=== PATIENT | female | born 1960 | race Caucasian/White ===

== ENCOUNTER 2019-08-29 10:29 | Outpatient (CLI) | payer OTHER ==
--- NOTE | 2019-08-29 13:39 | CT ---
CT CERVICAL SPINE WITHOUT CONTRAST: 08/29/19 INDICATION: Cervical radiculopathy. FINDINGS: Multilevel operative changes are noted. Anterior plate and screws transfix C4-5 with an interbody imp lant and interbody fusion. Interbody implant with interbody fusion at C5-6 and C6-7. Anterior plate and screws transfix C7-T1 with interbody implant and interbody fusion. The C2-3 disc s pace is relatively well preserved. There is narrowing and degenerative changes at the C3-4 disc space . Findings at each level described: C2-3: Minimal spondylosis. No cord impingement of central canal stenosis. Foramina are patent. C3-4: Posterior spondylosis effaces the anterior subarachnoid space and abuts the anterior cord. Bila teral foraminal stenosis secondary to facet and uncinate hypertrophy. C4-5: Interbody fusion. Mild posterior spondylosis effaces the anterior subarachnoid space. No signif icant central canal or foraminal stenosis. C5-6: Interbody fusion. Mild spondylosis. No central canal or foraminal stenosis. C6-7: Interbody fusion. Mild posterior spondylosis effaces the anterior subarachnoid space. No eviden ce of central canal or foraminal stenosis. C7-T1: Interbody fusion. No central canal or foraminal stenosis apparent. Posterior pedicle screws are seen at C6-C7 and these appear adequately positioned. IMPRESSION: 1. Degenerative changes at C3-4 with bilateral foraminal stenosis as described above. 2. Multilevel fusion from C4 through T1 as detailed above. POS: [facility]
== END 2019-08-29 10:30 | disposition home or self-care (01) ==
LOC: BICCT 10:29
PROVIDERS: ATTEND Anesthesiology
DX: M47.812 Spondylosis without myelopathy or radiculopathy, cervical region (principal); M48.02 Spinal stenosis, cervical region; Z98.1 Arthrodesis status
CPT/HCPCS: 72125

== ENCOUNTER 2020-09-19 09:10 | Outpatient (CLI) | payer BC ==
[2020-09-19] MEDS ORDERED: Iopamidol-370 76% 500 ML 1 ML ONE (09:56)
== END 2020-09-19 09:11 | disposition home or self-care (01) ==
LOC: BICCT 09:10
PROVIDERS: ATTEND Physician Assistant Medical
DX: E88.89 Other specified metabolic disorders (principal); N28.1 Cyst of kidney, acquired; N28.89 Other specified disorders of kidney and ureter
CPT/HCPCS: 74177

== ENCOUNTER 2021-02-08 02:23 | Inpatient (IN) | payer BC, SELFPAY ==
[2021-02-08 05:01] VITALS: BMI 26.6
[2021-02-08] MEDS ORDERED: Nitroglycerin 0.4 MG TAB (25 Tab Bottle) ONE (07:30)
[2021-02-08] MEDS ORDERED: Nitroglycerin 0.4 MG TAB (25 Tab Bottle) SL PRN ×2 (07:47→13:42)
[2021-02-08] MEDS ORDERED: Aspirin Chewable 81 MG TAB PO SCH (08:00)
[2021-02-08] MEDS ORDERED: FLU VACC QS2021-22(6MOS UP)/PF 60 MCG/0.5 ML SYRINGE IM ONE (09:00)
[2021-02-08] MEDS ORDERED: Morphine 4 MG/ML VIAL SLOW IVP PRN (09:06)
[2021-02-08 09:18] LABS: CKMB 50.6 ng/mL (0-6.6)
[2021-02-08] MEDS ORDERED: Lidocaine 1% (PF) 30 ML VIAL ONE (10:49)
[2021-02-08] MEDS ORDERED: Nitroglycerin 100MG/250ML BOT 250 ML ONE (11:13)
[2021-02-08] MEDS ORDERED: Verapamil 5 MG/2 ML VIAL ONE (11:13)
[2021-02-08] MEDS ORDERED: Heparin 10,000 UNITS/ 10 ML VIAL ONE (11:13)
[2021-02-08] MEDS ORDERED: Midazolam HCl 2 mg/2 ml Vial ONE (11:21)
[2021-02-08] MEDS: Communication Order-Pharmacy FS SCH (12:35)
[2021-02-08] MEDS ORDERED: Sodium Chloride 0.9% 200 ML IV PRN (13:42)
[2021-02-08] MEDS ORDERED: Iopamidol 370 76% 50 ML VIAL FS ONE (14:30)
[2021-02-08] MEDS ORDERED: Iopamidol 370 76% 100 ML VIAL ONE (14:30)
[2021-02-08] MEDS ORDERED: Ondansetron PF 4 MG/2 ML Vial IVP PRN (15:48)
[2021-02-08 16:20] LABS: #Eosinphils 0.1 thou/uL (0.0-0.7); #Lymphocytes 1.6 thou/uL (1.20-3.40); #Monocytes 0.7 thou/uL (0.11-0.59); #Neutrophils 9.1 thou/uL (1.40-6.50); %Basophils 0.3 % (0.0-1.0); %Eosinophils 0.5 % (0.0-10.0); %Monocytes 6.2 % (0.0-10.0); Hemoglobin 15.4 g/dL (12.0-16.0); Mean Corpuscular HGB CONC 34.3 g/dL (32.0-36.0); Mean Corpuscular Hemoglobin 31.3 pg (27.0-31.0); Mean Corpuscular Volume 91.3 fL (78.0-98.0); Mean Platelet Volume 6.4 fL (7.4-10.4); Platelet Count 280 thou/uL (130-400); RBC Distribution Width 11.7 % (11.5-14.5); Red Blood Cell (RBC) Count 4.93 mill/uL (4.20-5.40); White Blood Cell (WBC) Count 11.5 thou/uL (4.8-10.8)
[2021-02-08] MEDS: Carvedilol 3.125 MG TAB PO SCH (16:23)
[2021-02-08 16:41] LABS: Anion Gap 14 mmol/L (10-20); BUN (Urea Nitrogen) 10 mg/dL (9.8-20.1); Calc. Creatinine Clearance 90 mL/min (70-130); Calcium 9.4 mg/dL (7.8-10.44); Carbon Dioxide 23 mmol/L (22-29); Chloride 103 mmol/L (98-107); Glucose 121 mg/dL (70-105); Potassium 3.8 mmol/L (3.5-5.1); Sodium 136 mmol/L (136-145)
[2021-02-08 17:54] LABS: CKMB 166.5 ng/mL (0-6.6)
[2021-02-08] MEDS ORDERED: Rivaroxaban 2.5 MG TAB PO SCH (19:00)
[2021-02-08] MEDS: Atorvastatin Calcium 40 MG TAB PO SCH (20:31)
[2021-02-08] MEDS ORDERED: Enoxaparin Sodium 80 MG/0.8 ML SYRINGE SC SCH (21:00)
[2021-02-09 06:50] LABS: #Eosinphils 0.1 thou/uL (0.0-0.7); #Lymphocytes 1.6 thou/uL (1.20-3.40); #Monocytes 0.8 thou/uL (0.11-0.59); #Neutrophils 6.3 thou/uL (1.40-6.50); %Basophils 0.4 % (0.0-1.0); %Eosinophils 1.2 % (0.0-10.0); %Lymphocytes 18.5 % (21.0-51.0); %Monocytes 8.6 % (0.0-10.0); %Neutrophils 71.3 % (42.0-75.0); Hemoglobin 15.3 g/dL (12.0-16.0); Mean Corpuscular HGB CONC 34.2 g/dL (32.0-36.0); Mean Corpuscular Hemoglobin 31.3 pg (27.0-31.0); Mean Corpuscular Volume 91.4 fL (78.0-98.0); Mean Platelet Volume 6.4 fL (7.4-10.4); Platelet Count 274 thou/uL (130-400); RBC Distribution Width 11.9 % (11.5-14.5); Red Blood Cell (RBC) Count 4.88 mill/uL (4.20-5.40); White Blood Cell (WBC) Count 8.8 thou/uL (4.8-10.8)
[2021-02-09 07:10] LABS: Anion Gap 12 mmol/L (10-20); BUN (Urea Nitrogen) 10 mg/dL (9.8-20.1); Calc. Creatinine Clearance 88 mL/min (70-130); Calcium 9.3 mg/dL (7.8-10.44); Carbon Dioxide 26 mmol/L (22-29); Cardiac Risk 4.3 (Less than 4.5); Chloride 104 mmol/L (98-107); Cholesterol 251 mg/dl (< 200 Desired); Glucose 114 mg/dL (70-105); HDL Cholesterol 58 mg/dL (>60 Neg Risk); LDL Cholesterol, Calculated 170 mg/dL; Sodium 138 mmol/L (136-145); Triglycerides 115 mg/dL (Less than 150)
[2021-02-09] MEDS: Carvedilol 3.125 MG TAB PO SCH ×2 (09:03→17:46)
[2021-02-09] MEDS: Lisinopril 2.5 MG TAB PO SCH (09:03)
[2021-02-09] MEDS: Clopidogrel Bisulfate 75 MG TAB PO SCH (09:03)
[2021-02-09] MEDS: Rivaroxaban 2.5 MG TAB PO SCH ×2 (09:04→22:02)
[2021-02-09] MEDS: Acetaminophen 325 MG TAB PO PRN ×2 (09:06→22:02)
[2021-02-09] MEDS: Communication Order-Pharmacy FS SCH (11:31)
[2021-02-09] MEDS: Atorvastatin Calcium 40 MG TAB PO SCH (22:03)
[2021-02-10 04:42] LABS: #Basophils 0.1 thou/uL (0.0-0.2); #Eosinphils 0.1 thou/uL (0.0-0.7); #Lymphocytes 2.1 thou/uL (1.20-3.40); #Monocytes 0.7 thou/uL (0.11-0.59); #Neutrophils 5.2 thou/uL (1.40-6.50); %Basophils 0.7 % (0.0-1.0); %Eosinophils 1.4 % (0.0-10.0); %Lymphocytes 25.5 % (21.0-51.0); %Monocytes 8.6 % (0.0-10.0); %Neutrophils 63.8 % (42.0-75.0); Mean Corpuscular HGB CONC 32.6 g/dL (32.0-36.0); Mean Corpuscular Hemoglobin 29.6 pg (27.0-31.0); Mean Corpuscular Volume 90.7 fL (78.0-98.0); Mean Platelet Volume 6.5 fL (7.4-10.4); Platelet Count 266 thou/uL (130-400); RBC Distribution Width 11.8 % (11.5-14.5); Red Blood Cell (RBC) Count 4.72 mill/uL (4.20-5.40); White Blood Cell (WBC) Count 8.2 thou/uL (4.8-10.8)
[2021-02-10 05:10] LABS: Anion Gap 13 mmol/L (10-20); BUN (Urea Nitrogen) 15 mg/dL (9.8-20.1); Calc. Creatinine Clearance 80 mL/min (70-130); Calcium 9.3 mg/dL (7.8-10.44); Carbon Dioxide 25 mmol/L (22-29); Chloride 105 mmol/L (98-107); Glucose 105 mg/dL (70-105); Potassium 3.9 mmol/L (3.5-5.1); Sodium 139 mmol/L (136-145)
[2021-02-10 05:15] LABS: Critical Call Chem Troponin I RESULT DECREASING; Troponin I 8.944 ng/mL (< 0.028)
[2021-02-10] MEDS ORDERED: Levothyroxine Sodium 100 MCG TAB PO SCH (06:00)
[2021-02-10] MEDS ORDERED: Non-Formulary Item 1 EACH (Levothyroxine Sodium [Levothyroxine] 100 MCG Capsule) PO SCH (09:00)
[2021-02-10] MEDS ORDERED: ALPRAZolam 0.5 MG TAB PO SCH (09:30)
[2021-02-10] MEDS: Clopidogrel Bisulfate 75 MG TAB PO SCH (09:38)
[2021-02-10] MEDS: Rivaroxaban 2.5 MG TAB PO SCH (09:38)
[2021-02-10] MEDS: Acetaminophen 325 MG TAB PO PRN (09:39)
[2021-02-10] MEDS: Lisinopril 2.5 MG TAB PO SCH (10:28)
[2021-02-10] MEDS: Carvedilol 3.125 MG TAB PO SCH ×2 (10:28→16:11)
[2021-02-10] MEDS: Communication Order-Pharmacy FS SCH (13:12)
[2021-02-10] MEDS ORDERED: traMADol HCl 50 MG TAB PO SCH (14:00)
[2021-02-10 16:09] VITALS: BP 117/56; TEMP 97.8
[2021-02-10] MEDS ORDERED: Gabapentin 300 MG CAP PO SCH (21:00)
[2021-02-11] MEDS ORDERED: Venlafaxine HCl XR 150 MG CAP PO SCH (09:00)
[2021-02-11] MEDS ORDERED: Amlodipine 10 MG TAB PO SCH (09:00)
[2021-02-11] MEDS ORDERED: buPROPion 75 MG TAB PO SCH (09:00)
== END 2021-02-10 17:12 | disposition home or self-care (01) | DRG 282 ==
LOC: 2SW 02:23 → OBSVTOIN 07:47
PROVIDERS: ADMIT Student in an Organized Health Care Education/Training Program; ATTEND Internal Medicine
PROC: 4A023N7 Measurement of Cardiac Sampling and Pressure, Left Heart, Percutaneous Approach (ICD-10-PCS; principal; 2021-02-08)
PROC: B2111ZZ Fluoroscopy of Multiple Coronary Arteries using Low Osmolar Contrast (ICD-10-PCS; 2021-02-08)
DX: I21.02 ST elevation (STEMI) myocardial infarction involving left anterior descending coronary artery (principal); I10 Essential (primary) hypertension; E03.9 Hypothyroidism, unspecified; F41.9 Anxiety disorder, unspecified; F32.A Depression, unspecified; I25.10 Atherosclerotic heart disease of native coronary artery without angina pectoris; F17.210 Nicotine dependence, cigarettes, uncomplicated; E78.5 Hyperlipidemia, unspecified; M81.0 Age-related osteoporosis without current pathological fracture; Z85.3 Personal history of malignant neoplasm of breast; Z92.21 Personal history of antineoplastic chemotherapy; Z92.3 Personal history of irradiation; Z88.2 Allergy status to sulfonamides; Z88.5 Allergy status to narcotic agent; Z79.899 Other long term (current) drug therapy; Z71.6 Tobacco abuse counseling; Z90.710 Acquired absence of both cervix and uterus
CPT/HCPCS: 36415; 80048; 80061; 82553; 84484; 85025; 85347; 93005; 93010; 93306; 93458; 93798; 99152; 99153; J1644; J2001; J2250; J2405; Q9967